=== PATIENT | female | born 2000 | race Hispanic/Latino ===

== ENCOUNTER 2024-10-12 02:14 | Emergency (ER) | payer OTHER, SELFPAY ==
[2024-10-12 02:17] VITALS: BP 126/71
--- NOTE | 2024-10-12 03:32 | ED.GENMED ---
History of Present Illness
General
Chief Complaint: Dizziness
Source: patient
Exam Limitations: none
Time Seen by Provider: 10/12/24 03:21
History of Present Illness
History of Present Illness:
See MDM
Past History
Past History
ED Past Medical History: Arrthythmia (WPW)
ED Past Surgical History: Cardiac (WPW ablation) and Other ([place] teeth removal)
Patient has exhibited threatening behavior?: No
Social History
Tobacco: Smoker (10/03 ppd)
Living: with family
Phy Exam
Physical Exam
Physical Exam:
See MDM
Course
Orders/Labs/Results
Orders:
Orders
10/12/24 03:31
Electrocardiogram (*1) Urgent
Reason for Study: Fatigue / Weakness
EKG- Treatment ONCE
Dexamethasone Pf [Decadron] 10 mg PO NOW STA
Ketorolac [Toradol] 30 mg IM NOW STA
10/12/24 03:47
Acetaminophen [Tylenol] 650 mg PO NOW STA
Vital Signs
Initial and Last Documented VS:
Initial Vital Signs
Temp Pulse Resp BP Pulse Ox
98.0 F 91 20 126/71 100
10/12/24 02:17 10/12/24 02:17 10/12/24 02:17 10/12/24 02:17 10/12/24 02:17
Last Documented Vital Signs
Temp Pulse Resp BP Pulse Ox
98.0 F 91 20 126/71 100
10/12/24 02:17 10/12/24 02:17 10/12/24 02:17 10/12/24 02:17 10/12/24 02:17
MDM/Problems Addressed
Differential Diagnosis Includes:
HPI and MDM Narrative:
24-year-old female presenting with dizziness and left thigh pain. Patient does admit that she has had pain intermittently. She is concerned because she now notices that her left thigh is numb. She localizes the area in her left inguinal canal
where she had required repair of her femoral artery from a complication from a cardiac ablation.
On exam, there is no thrill palpated in her left groin. Her symptoms are more consistent with mild sciatica. Distal extremity neurovascular intact. Will start steroids and pain medicine
Physical exam
General: Extremely well appearing and non-toxic.
HEENT: protecting airway
Neck: appears supple
CV: No evidence of cyanosis
Resp: No accessory muscle use
Abd: Non-distended
Extremities: No deformities. No tenderness to palpation to left femoral artery
Neuro: alert. Mild sensory deficit to left medial thigh
Psych: Normal affect
Skin: Intact
Problems Addressed including Acute and Chronic Conditions affecting care:
1. Sciatica
Acuity: acute
Prognosis: stable
Details: Will start steroids
2. Fatigue and dizziness
Acuity: acute
Prognosis: stable
Details: Likely a pain response. Will obtain screening EKG
Updates
Differential Diagnosis (but not limited to): Sciatica, muscle strain
Testing considered: Lumbar x-ray
Drug therapy (if applicable): OTC meds, please see d/c instruction regarding Rx drugs
Amount and/or Complexity of Data Reviewed
Clinical info obtained from: Patient
External data reviewed: N/A
Labs I independently reviewed (but not limited to): N/A
Radiology: N/A
Pulse Ox: not hypoxic
EKG independently reviewed: sinus rhythm, normal axis, no STEMI
Motor And Generator Assembler: N/A
Critical Care: N/A
Risk of Complication:
Social Determinants of health: Good social support
Discussed with other providers: N/A
Escalation of Care includes Admit/Obs: After being observed in the Emergency Department, pt stable for discharge.
Occasional wrong word or 'sound a like' substitutions may have occurred due to the inherent limitations of voice recognition software. Read the chart carefully and recognize, using context, where substitutions have occurred.
*Critical Care Note
Total Time (30-74mins, 75-104mins- exclusive of procedures): Not Applicable
ED Attending Note
-
Portions of this chart may have been created with voice recognition software.� Occasional wrong word or��sound alike� substitutions may have occurred due to the inherent limitations of voice recognition software.
Discharge Plan
Departure
Patient Disposition: Home (Routine Discharge)
Date of Disposition: 10/12/24
Time of Disposition: 04:18
Patient with high blood pressure during this ER visit?: No
Discharge Problem:
Sciatica of left side
Instructions: Sciatica ED
Prescriptions:
New
prednisone 20 mg tablet
40 mg PO DAILY Qty: 10 0RF
No Action
citalopram 20 mg Tablet
20 mg PO DAILY
oxycodone 5 mg tablet
5 mg PO .Q4-6H PRN (Reason: pain) Qty: 10 0RF
Activity Restrictions/Additional Instructions:
Please return for any worsening symptoms.
You may return at any time if you have further concerns.
Please follow up with your doctor at the first available appointment, preferably this week.
Thank you for choosing [facility].
Interventions
Interventions:
*Risk Screen - Suicide Last Done: 10/12/24 02:17
*General Assessment Last Done: 10/12/24 03:44
*Neglect/Abuse Screening Last Done: 10/12/24 02:17
ED- Fall Risk Assessment Last Done: 10/12/24 02:17
*ED COVID-19 Vaccine History Last Done: 10/12/24 02:17
ED- Neurological Assessment Last Done: 10/12/24 03:44
ED Swallowing Screen Last Done: 10/12/24 03:44
Discharge Date and Time
Print Language: SUDANESE
[2024-10-12] MEDS: DECADRON 10 MG PO (03:38)
[2024-10-12] MEDS: TYLENOL 650 MG PO (03:52)
[2024-10-12 04:40] VITALS: BP 115/62
== END 2024-10-12 04:40 | disposition home or self-care (01) ==
LOC: EMR 02:14
PROVIDERS: EMERGENCY PHYSICIAN Student in an Organized Health Care Education/Training Program; FAMILY PHYSICIAN Family Medicine
DX: M54.32 Sciatica, left side (principal); R42 Dizziness and giddiness; R53.83 Other fatigue; R53.1 Weakness; M79.652 Pain in left thigh; F17.210 Nicotine dependence, cigarettes, uncomplicated; Z88.6 Allergy status to analgesic agent
CPT/HCPCS: 99284; 96372; 93005

== ENCOUNTER 2024-10-20 03:09 | Emergency (ER) | payer OTHER, SELFPAY ==
[2024-10-20 03:17] VITALS: BP 121/75
[2024-10-20 04:01] VITALS: BMI 25.0
[2024-10-20 04:04] VITALS: BP 113/66
[2024-10-20 04:07] VITALS: BP 106/71; BP 108/76; BP 113/66; PULSE 65; PULSE 69; PULSE 93
[2024-10-20 04:29] LABS: Urine Albumin Negative (Neg - Trace); Urine Bilirubin Negative (Negative); Urine Character Clear (Clear); Urine Color Yellow; Urine Glucose Negative (Negative); Urine Ketone Negative (Negative); Urine Leukocyte Negative (Negative); Urine Nitrite Negative (Negative); Urine Occult Blood 1+ (Negative); Urine Urobilinogen Negative (Neg - 1+)
[2024-10-20] MEDS: NSS 1000 IV (04:58)
[2024-10-20 05:02] LABS: % Basophils 0.6 % (0-2); % Eosinophils 3.6 % (0-6); % Immature Granulocytes 0.4 % (0-0.5); % Lymphocytes 28.2 % (20.5-51.1); % Monocytes 6.5 % (1.7-9.3); % Neutrophils 60.7 % (42.2-75.2); Absolute Basophils 0.1 10^3/uL (0-0.2); Absolute Eosinophils 0.3 10^3/uL (0-0.7); Absolute Lymphocytes 2.2 10^3/uL (1.2-3.4); Absolute Monocytes 0.5 10^3/uL (0.1-0.6); Absolute Neutrophils 4.8 10^3/uL (1.4-6.5); Hemoglobin 11.6 g/dL (12.0-16.0); Mean Corp Hgb Conc. 32.2 g/dL (33.0-37.0); Mean Corpuscular Hgb 26.5 pg (27.0-31.0); Mean Corpuscular Volume 82.4 fL (81.0-99.0); Mean Platelet Volume 10.4 fL (7.4-10.4); Nucleated Red Blood Cells % 0 %; Platelet Count 244 10^3/uL (130-400); Red Blood Cell Count 4.37 10^6/uL (4.20-5.40); Red Cell Dist. Width 15.6 % (11.5-14.5); White Blood Cell Count 7.8 10^3/uL (4.8-10.8)
[2024-10-20 05:09] LABS: Urine Bacteria Few (Negative); Urine Red Blood Cell 0-2 /HPF (0-2); Urine Squamous Cell >30 /LPF (Few); Urine White Cell 0-2 /HPF (0-5)
[2024-10-20 05:09] LABS: HCG, Serum Qualitative Screen Negative
[2024-10-20 05:11] LABS: ALT (SGPT) 17 U/L (0-35); AST (SGOT) 20 U/L (14-36); Albumin 4.6 g/dl (3.5-5.0); Alkaline Phosphatase 71 U/L (38-126); Blood Urea Nitrogen 11 mg/dl (7-17); Calcium 9.4 mg/dl (8.4-10.2); Carbon Dioxide 25 mmol/L (22-30); Chloride 103 mmol/L (98-107); Estimated Creatinine Clearance 93 ml/min; Glucose 94 mg/dl (70-99); Potassium 3.7 mmol/L (3.5-5.1); Sodium 139 mmol/L (135-145); Total Bilirubin 0.7 mg/dl (0.2-1.3); Total Protein 7.6 g/dl (6.3-8.2); eGFR > 60.00
[2024-10-20 05:36] VITALS: BP 101/64
[2024-10-20] MEDS: ANTIVERT 12.5 MG PO (06:05)
--- NOTE | 2024-10-20 06:07 | ED.GENMED ---
History of Present Illness
General
Chief Complaint: Dizziness
Source: patient
Exam Limitations: none
Time Seen by Provider: 10/20/24 04:21
Nursing documentation reviewed up to this point in time: agreed with
History of Present Illness
History of Present Illness:
Pleasant 24-year-old female who presents with dizziness and palpitations. These been present for the last week. Patient was seen in the emergency department a week ago and discharged without a definitive etiology. She was seen by her primary care
provider who thought it could be inner ear issues. She is due to see ENT but has not been able to get an appointment yet
Past History
Past History
ED Past Medical History: Arrthythmia (WPW)
ED Past Surgical History: Cardiac (WPW ablation) and Other ([place] teeth removal)
Patient has exhibited threatening behavior?: No
Social History
Tobacco: Smoker (/2 ppd)
Living: with family
Review of Systems
Review of Systems
Allergies reviewed?: Yes
All Other Systems: ROS reviewed and negative except as documented in HPI and ROS
Neurological: Reports dizzy
Phy Exam
General Physical Exam
General Presentation: well appearing and no apparent distress
General Skin: warm and dry
General Habitus: normal
General Mental: alert
General Hydration: appears well hydrated
ENT Exam
ENT Exam: EOMI, pharynx normal, neck supple and normocephalic
Eye Exam
Eye Exam: PERRL, cornea clear and conjunctiva normal
Cardiovascular Exam
Cardiovascular Exam: regular rate/rhythm, no edema, no murmur and normal peripheral pulses
Pulmonary Exam
Pulmonary Exam: lungs clear, no respiratory distress, no rales, no crackles, no rhonchi, no stridor, no wheezing and no cough
Gastrointestinal Exam
Gastrointestinal Exam: normal bowel sounds, non tender, soft, no organomegaly, no pulsatile mass and non distended
Neurological Exam
Neurological Exam: alert, oriented x3, no motor deficits and speech normal
Musculoskeletal Exam
Musculoskeletal Exam: full ROM and no edema
Skin Exam
Skin Exam: normal color, warm/dry, no rash and no petechia
Psychiatric Exam
Psychiatric Exam: normal mood/affect
Course
Orders/Labs/Results
Orders:
Orders
10/20/24 03:21
Electrocardiogram (*1) Urgent
Reason for Study: Palpitations
EKG- Treatment ONCE
10/20/24 04:14
Urinalysis Reflex To Culture Urgent
Date Specimen was Collected: 10/20/24
Time Specimen was Collected: 04:13
Urine Microscopic Reflex Cult Urgent
10/20/24 04:30
Test Result ONCE
10/20/24 04:51
Complete Blood Count/With Diff Urgent
Comprehensive Metabolic Panel Urgent
HCG, Serum Qualitative Screen Urgent
10/20/24 04:57
0.9% Sodium Chloride 1000 ml [Nss] 1,000 ml IV BOLUS
10/20/24 05:00
0.9% Sodium Chloride 1000 ml [Nss] 1,000 ml IV 1,000 mls/hr
10/20/24 05:50
Meclizine [Antivert] 12.5 mg PO NOW STA
Abnormal Lab Results
10/20/24 10/20/24
04:14 04:51
Hgb 11.6 L g/dL
(12.0-16.0)
Hct 36.0 L %
(37.0-47.0)
MCH 26.5 L pg
(27.0-31.0)
MCHC 32.2 L g/dL
(33.0-37.0)
RDW 15.6 H %
(11.5-14.5)
Ur Occult Blood Reflex 1+ A
(Negative)
Urine Bacteria (Reflex) Few A
(Negative)
10/20/24 04:51
10/20/24 04:51
Vital Signs
Initial and Last Documented VS:
Initial Vital Signs
Temp Pulse Resp BP Pulse Ox
98.6 F 73 16 121/75 100
10/20/24 03:17 10/20/24 03:17 10/20/24 03:17 10/20/24 03:17 10/20/24 03:17
Last Documented Vital Signs
Temp Pulse Resp BP Pulse Ox
98.6 F 71 20 101/64 100
10/20/24 03:17 10/20/24 05:36 10/20/24 05:36 10/20/24 05:36 10/20/24 05:36
*Critical Care Note
Total Time (30-74mins, 75-104mins- exclusive of procedures): Not Applicable
ED Attending Note
-
Portions of this chart may have been created with voice recognition software.� Occasional wrong word or��sound alike� substitutions may have occurred due to the inherent limitations of voice recognition software.
Discharge Plan
Departure
Patient Disposition: Home (Routine Discharge)
Date of Disposition: 10/20/24
Time of Disposition: 06:09
Patient with high blood pressure during this ER visit?: No
Condition: Good
Discharge Problem:
Dizziness
Instructions: Dizziness
Prescriptions:
New
meclizine 12.5 mg tablet
12.5 mg PO TID PRN (Reason: dizziness) Qty: 14 0RF
No Action
Vitamin D3
1 cap PO DAILY
ferrous sulfate
325 mg PO DAILY
Referrals:
[facility] [Outside]
Royer Longo DO [Family Provider] -
Activity Restrictions/Additional Instructions:
Please follow-up with the pulse line to get in touch with the vestibularocular rehab group here at the hospital.
It was a pleasure meeting you and taking part in your care. We hope for your continued healing and wellness.
Please read discharge instructions in their entirety. However, they are for general education and may not describe your exact diagnosis at discharge. Information on your ER visit and medical conditions were discussed with you along with appropriate
follow up information...
If indicated, please take your medications as instructed and indicated on discharge paperwork.
Please schedule a follow up appointment as directed. Call to schedule an appointment
Please return to the emergency department with ANY change in, persisting, or worsening of symptoms. If any of your symptoms do not improve, or persist, or become more severe within 6-12 hours, please return to the emergency department for further
care.
Please return to the emergency department if you develop a headache, neck pain/stiffness, fever greater than 100.4F, chest pain, shortness of breath, persistent nausea, vomiting, slurred speech, difficulty walking, numbness/tingling, weakness, signs
of infection or any other symptoms that are worrisome to you.
If you have any questions or concerns please do not hesitate to call the Hospital at or E-mail me directly at [email or web address]
Interventions
Interventions:
*Risk Screen - Suicide Last Done: 10/20/24 03:17
*General Assessment Last Done: 10/20/24 03:17
*Neglect/Abuse Screening Last Done: 10/20/24 03:17
ED- Fall Risk Assessment Last Done: 10/20/24 04:09
*ED COVID-19 Vaccine History Last Done: 10/20/24 03:17
ED- Neurological Assessment Last Done: 10/20/24 04:09
ED- Cardiac Assessment Last Done: 10/20/24 04:09
ED Swallowing Screen Last Done: 10/20/24 05:20
Discharge Date and Time
Print Language: JAPANESE
[2024-10-20 06:09] VITALS: BP 111/63
[2024-10-20 06:42] VITALS: BP 111/63
== END 2024-10-20 06:52 | disposition home or self-care (01) ==
LOC: EMR 03:09
PROVIDERS: EMERGENCY PHYSICIAN Student in an Organized Health Care Education/Training Program; FAMILY PHYSICIAN Family Medicine
DX: R42 Dizziness and giddiness (principal); R00.2 Palpitations; I45.6 Pre-excitation syndrome; G90.A Postural orthostatic tachycardia syndrome [POTS]; F41.9 Anxiety disorder, unspecified; F32.A Depression, unspecified; F17.210 Nicotine dependence, cigarettes, uncomplicated; Z88.6 Allergy status to analgesic agent
CPT/HCPCS: 99284; 96360; 96361; 80053; 81003; 81015; 84703; 85025; 93005